=== PATIENT | female | born 1975 | race Caucasian/White ===

== ENCOUNTER 2018-06-01 17:33 | Inpatient (IN) | payer OTHER ==
[~2018-06-01 17:33] MED LIST: EPHEDrine SULFATE 50 MG/5 ML SYG; PHENYLephrine (100 MCG/ML) 5ML SYG
[2018-06-01] MEDS ORDERED: OXYTOCIN 30 UNITS/LR 500 ML IV ×4 (18:00→22:30)
[2018-06-01] MEDS ORDERED: MISOPROSTOL 200 MCG TAB PR ×2 (18:00→22:30)
[2018-06-01] MEDS ORDERED: CARBOPROST 250 MCG INJ IM ×2 (18:00→22:30)
[2018-06-01] MEDS ORDERED: METHYLERGONOVINE 0.2 MG INJ IM ×2 (18:00→22:30)
[2018-06-01] MEDS ORDERED: CEFAZOLIN 2 GM/50 ML (PMX) 50 ML IV (18:00)
[2018-06-01] MEDS: LACTATED RINGER'S 1,000 ML IV ×2 (18:18→20:10)
[2018-06-01 18:32] LABS: ADD MAN DIFF? NO
[2018-06-01 18:38] LABS: WHITE BLOOD COUNT 7.4 10^3/ul (4.8-10.8)
[2018-06-01 18:38] LABS: BASOPHILS % 0.1 % (0.0-2.0); EOSINOPHILS % 0.1 % (0.0-7.0); HEMOGLOBIN 12.6 g/dl (12.0-16.0); LYMPHOCYTES # 2.2 10^3/ul (0.8-2.9); LYMPHOCYTES % 29.1 % (15.0-51.0); MEAN CORPUSCULAR HGB CONC 34.1 g/dl (32.0-37.0); MEAN CORPUSCULAR VOLUME 91.1 fl (82.0-101.0); MEAN PLATELET VOLUME 10.5 fl (7.4-10.4); MONOCYTE # 0.5 10^3/ul (0.3-0.9); NEUTROPHIL # 4.7 10^3/ul (1.6-7.5); NEUTROPHILS % 63.6 % (39.0-77.0); PLATELET COUNT 229 10^3/UL (140-415); RED BLOOD COUNT 4.06 10^6/ul (4.20-5.40); RED CELL DISTRIBUTION WIDTH 13.1 % (11.5-14.5)
[2018-06-01 19:13] LABS: INR 1.01; PARTIAL THROMBOPLASTIN TIME 25.8 Sec (25.0-35.0); PROTIME 13.4 Sec (11.9-14.9)
[2018-06-01] MEDS ORDERED: METOCLOPRAMIDE 10 MG INJ (19:35)
[2018-06-01] MEDS ORDERED: FAMOTIDINE 20 MG INJ (19:35)
[2018-06-01] MEDS ORDERED: CITRIC ACID/SODIUM CITRATE 15 ML CUP (19:35)
[2018-06-01] MEDS: FAMOTIDINE 20 MG INJ IV (20:00)
[2018-06-01] MEDS: CITRIC ACID/SODIUM CITRATE 15 ML CUP PO (20:00)
[2018-06-01] MEDS: METOCLOPRAMIDE 10 MG INJ IV (20:00)
[2018-06-01] MEDS ORDERED: morphine SULFATE/PF (10 MG/10 ML) INJ (20:46)
[2018-06-01] MEDS ORDERED: BUPIVACAINE 0.75%/DEXT (SPINAL) 2 ML INJ (20:46)
[2018-06-01] MEDS ORDERED: PHENYLephrine (100 MCG/ML) 10ML SYG (20:57)
[2018-06-01] MEDS ORDERED: ONDANSETRON 4 MG INJ (21:18)
[2018-06-01] MEDS ORDERED: MIDAZOLAM 1 MG/ML 2 ML INJ (21:44)
[2018-06-01] MEDS: DEXTROSE 5%-LR 1,000 ML IV (22:26)
[2018-06-01] MEDS ORDERED: DIPHENHYDRAMINE 50 MG INJ IV ×2 (22:30)
[2018-06-01] MEDS ORDERED: FENTAnyl 50 MCG/ML VIAL IV ×3 (22:30)
[2018-06-01] MEDS: OXYCODONE/ACETAMINOPHEN (5/325) TAB PO (22:30)
[2018-06-01] MEDS ORDERED: HYDROmorphONE 0.5 MG/0.5 ML SYG IV ×2 (22:30)
[2018-06-01] MEDS ORDERED: NALOXONE (0.4 MG/ML) INJ IV (22:30)
[2018-06-01] MEDS ORDERED: ZOLPIDEM 5 MG TAB PO (22:30)
[2018-06-01] MEDS ORDERED: MEPERIDINE 25 MG INJ IV (22:30)
[2018-06-01] MEDS ORDERED: PROCHLORPERAZINE 10 MG INJ IV (22:30)
[2018-06-01] MEDS ORDERED: METHYLERGONOVINE 0.2 MG TAB PO (22:30)
[2018-06-01] MEDS ORDERED: ONDANSETRON 4 MG INJ IV ×2 (22:30)
[2018-06-01] MEDS ORDERED: HYDROmorphONE 1 MG/5 ML IV SYRINGE IV ×3 (22:30)
[2018-06-01] MEDS: KETOROLAC 30 MG INJ IV (23:22)
[2018-06-02] MEDS: OXYTOCIN 30 UNITS/LR 500 ML IV ×2 (00:40→04:59)
[2018-06-02] MEDS: IBUPROFEN 800 MG TAB PO ×3 (06:00→22:00)
[2018-06-02 06:06] LABS: HEPATITIS B SURFACE ANTIGEN NEGATIVE (NEGATIVE)
[2018-06-02] MEDS: OXYCODONE/ACETAMINOPHEN (5/325) TAB PO ×3 (06:25→22:17)
[2018-06-02] MEDS: KETOROLAC 30 MG INJ IV ×3 (06:29→20:27)
[2018-06-02 09:11] LABS: ADD MAN DIFF? NO
[2018-06-02 09:21] LABS: BASOPHILS % 0.3 % (0.0-2.0); EOSINOPHILS % 0.1 % (0.0-7.0); HEMATOCRIT 34.2 % (37.0-47.0); HEMOGLOBIN 11.8 g/dl (12.0-16.0); LYMPHOCYTES # 1.8 10^3/ul (0.8-2.9); LYMPHOCYTES % 17.3 % (15.0-51.0); MEAN CORPUSCULAR HEMOGLOBIN 31.6 pg (29.0-33.0); MEAN CORPUSCULAR HGB CONC 34.5 g/dl (32.0-37.0); MEAN CORPUSCULAR VOLUME 91.7 fl (82.0-101.0); MEAN PLATELET VOLUME 10.3 fl (7.4-10.4); MONOCYTE # 0.8 10^3/ul (0.3-0.9); MONOCYTES % 7.5 % (0.0-11.0); NEUTROPHIL # 7.6 10^3/ul (1.6-7.5); NEUTROPHILS % 74.5 % (39.0-77.0); PLATELET COUNT 194 10^3/UL (140-415); RED BLOOD COUNT 3.73 10^6/ul (4.20-5.40)
[2018-06-02 09:21] LABS: WHITE BLOOD COUNT 10.3 10^3/ul (4.8-10.8)
[2018-06-02] MEDS: SENNA/DOCUSATE NA (8.6MG/50MG) TAB PO ×2 (09:51→22:17)
[2018-06-02] MEDS: LACTATED RINGER'S 1,000 ML IV ×2 (15:02→17:49)
[2018-06-02 20:59] LABS: RAPID PLASMA REAGIN NONREACTIVE (NR)
[2018-06-03] MEDS: LACTATED RINGER'S 1,000 ML IV ×3 (01:49→17:49)
[2018-06-03] MEDS: OXYCODONE/ACETAMINOPHEN (5/325) TAB PO ×5 (03:10→22:30)
[2018-06-03] MEDS: IBUPROFEN 800 MG TAB PO ×3 (06:53→22:17)
[2018-06-03] MEDS: SENNA/DOCUSATE NA (8.6MG/50MG) TAB PO ×2 (09:07→20:43)
[2018-06-03] MEDS: LANOLIN 7 GM TUBE TOP (11:50)
[2018-06-03] MEDS: MAGNESIUM HYDROXIDE 30ML CUP PO (22:17)
[2018-06-04] MEDS: IBUPROFEN 800 MG TAB PO (06:13)
[2018-06-04] MEDS: OXYCODONE/ACETAMINOPHEN (5/325) TAB PO (06:15)
[2018-06-04] MEDS: SENNA/DOCUSATE NA (8.6MG/50MG) TAB PO (09:00)
[2018-06-04] MEDS: MEASLES,MUMPS,RUBELLA VACCINE INJ SC* (09:00)
[2018-06-04] MEDS: DIPHTH/TET/ACEL PERTUSS (ADULT) 0.5 ML VIAL IM* (13:18)
== END 2018-06-04 14:30 | disposition home or self-care (01) | DRG 766 ==
LOC: L-D 17:33 → PP1 06-02 01:08 → L-D 20:36
PROVIDERS: Obstetrics & Gynecology
PROC: 10D00Z1 Extraction of Products of Conception, Low, Open Approach (ICD-10-PCS; principal; 2018-06-01 19:30)
DX: O44.23 Partial placenta previa NOS or without hemorrhage, third trimester (principal); O99.824 Streptococcus B carrier state complicating childbirth; Z3A.37 37 weeks gestation of pregnancy; Z37.0 Single live birth; Z23 Encounter for immunization
CPT/HCPCS: 85025; 85610; 85730; 86592; 86850; 86900; 86901; 86920; 87340; 90715; 99464